=== PATIENT | male | born 1960 | race Caucasian/White ===

== ENCOUNTER 2019-10-30 07:06 | Emergency (ER) | payer OTHER ==
[~2019-10-30] VITALS: Ht 177.8 cm; Wt 95.7 kg
[2019-10-30 07:08] VITALS: BP 131/74
[2019-10-30] MEDS: HYOSCYAMINE 0.125 MG TAB.RAPDIS PO ONE (07:25)
[2019-10-30] MEDS: IV NORMAL SALINE 1,000ML 1,000 ML IV ONE (07:25)
[2019-10-30] MEDS: ONDANSETRON PF 4 MG/2 ML VIAL. IV ONE (07:25)
--- NOTE | 2019-10-30 07:31 | PHYS DOC ---
Past History Past Medical History: Cancer (non-Hodgkin's lymphoma, prostate, last chemotherapy or radiation 2 years ago), Other Past Surgical History: Cancer Surgery Smoking: Non-smoker Alcohol Use: None Drug Use: None Adult General Chief Complaint Chief Complaint: DIARRHEA HPI HPI Patient is a 59-year-old male presents with abdominal cramping and diarrhea that started this morning. No blood in the stool. There is some nausea without vomiting. No recent travel. Patient ate at an [employer] restaurant last night. But family with him is not sick. Subjective fevers. No home temperature has been taken. Nothing makes symptoms better or worse. Symptoms are moderate in intensity. He received the flu vaccine this season.[] Review of Systems Review of Systems Constitutional: Denies fever or chills [] Eyes: Denies change in visual acuity, redness, or eye pain [] HENT: Denies nasal congestion or sore throat [] Respiratory: Denies cough or shortness of breath [] Cardiovascular: No chest pain or palpitations[] GI: See history of present illness[] : Denies dysuria or hematuria [] Musculoskeletal: Denies back pain or joint pain [] Integument: Denies rash or skin lesions [] Neurologic: Denies headache, focal weakness or sensory changes [] Endocrine: Denies polyuria or polydipsia [] All other systems were reviewed and found to be within normal limits, except as documented in this note. Current Medications Current Medications Current Medications Medications (Trade) Dose Ordered Sig/Estevan Start Time Stop Time Status Last Admin Dose Admin Hyoscyamine (Anaspaz) 0.125 mg 1X ONCE 10/30/19 07:30 10/30/19 07:31 10/30/19 07:25 0.125 MG Ondansetron HCl (Zofran) 8 mg 1X ONCE 10/30/19 07:30 10/30/19 07:31 10/30/19 07:25 8 MG Sodium Chloride 1,000 ml @ 1,000 mls/hr 1X ONCE 10/30/19 07:30 10/30/19 08:29 10/30/19 07:25 1,000 MLS/HR Allergies Allergies Allergies Coded Allergies Type Severity Reaction Last Updated Verified No Known Drug Allergies 05/05/15 No Physical Exam Physical Exam Constitutional: Well developed, well nourished, no acute distress, non-toxic appearance. [] HENT: Normocephalic, atraumatic, bilateral external ears normal, oropharynx moist, no oral exudates, nose normal. [] Eyes: PERRLA, EOMI, conjunctiva normal, no discharge. [] Neck: Normal range of motion, no tenderness, supple, no stridor. [] Cardiovascular:Heart rate regular rhythm, no murmur [] Lungs & Thorax: Bilateral breath sounds clear to auscultation [] Abdomen: Bowel sounds normal, soft, no tenderness, no masses, no pulsatile masses. [] Skin: Warm, dry, no erythema, no rash. [] Back: No tenderness, no CVA tenderness. [] Extremities: No tenderness, no cyanosis, no clubbing, ROM intact, no edema. [] Neurologic: Alert and oriented X 3, normal motor function, normal sensory function, no focal deficits noted. [] Psychologic: Affect normal, judgement normal, mood normal. [] Current Patient Data Lab Results Laboratory Tests Test 10/30/19 07:13 10/30/19 07:23 White Blood Count 13.6 x10^3/uL Red Blood Count 5.36 x10^6/uL Hemoglobin 16.4 g/dL Hematocrit 46.5 % Mean Corpuscular Volume 87 fL Mean Corpuscular Hemoglobin 31 pg Mean Corpuscular Hemoglobin Concent 35 g/dL Red Cell Distribution Width 13.9 % Platelet Count 200 x10^3/uL Neutrophils (%) (Auto) 95 % Lymphocytes (%) (Auto) 2 % Monocytes (%) (Auto) 2 % Eosinophils (%) (Auto) 0 % Basophils (%) (Auto) 0 % Neutrophils # (Auto) 13.0 x10^3uL Lymphocytes # (Auto) 0.3 x10^3/uL Monocytes # (Auto) 0.3 x10^3/uL Eosinophils # (Auto) 0.0 x10^3/uL Basophils # (Auto) 0.0 x10^3/uL Sodium Level 140 mmol/L Potassium Level 4.2 mmol/L Chloride Level 104 mmol/L Carbon Dioxide Level 28 mmol/L Anion Gap 8 Blood Urea Nitrogen 19 mg/dL Creatinine 1.1 mg/dL Estimated GFR (Cockcroft-Gault) 68.1 BUN/Creatinine Ratio 17 Glucose Level 143 mg/dL Calcium Level 8.7 mg/dL Total Bilirubin 0.9 mg/dL Aspartate Amino Transf (AST/SGOT) 17 U/L Alanine Aminotransferase (ALT/SGPT) 35 U/L Alkaline Phosphatase 64 U/L Total Protein 7.9 g/dL Albumin 4.3 g/dL Albumin/Globulin Ratio 1.2 Lipase 59 U/L Influenza Type A (Rapid) Negative Influenza Type B (Rapid) Negative Current Medications Medications (Trade) Dose Ordered Sig/Estevan Route PRN Reason Start Time Stop Time Status Last Admin Dose Admin Sodium Chloride 1,000 ml @ 1,000 mls/hr 1X ONCE IV 10/30/19 07:30 10/30/19 08:29 10/30/19 07:25 Hyoscyamine (Anaspaz) 0.125 mg 1X ONCE PO 10/30/19 07:30 10/30/19 07:31 DC 10/30/19 07:25 Ondansetron HCl (Zofran) 8 mg 1X ONCE IV 10/30/19 07:30 10/30/19 07:31 DC 10/30/19 07:25 EKG EKG [] Radiology/Procedures Radiology/Procedures [] Course & Med Decision Making Course & Med Decision Making Pertinent Labs and Imaging studies reviewed. (See chart for details) Emergency department course: Patient arrived, was placed in bed, and tolerated exam well. IV access was established, he was given IV fluids, antibiotics, and antispasmodics. He reported feeling much better after the medications were administered. Findings and plan were discussed with patient and family who voiced understanding. All questions were answered. He was discharged in improved condition. Medical decision making: A ricardo does not have flu. Patient has no evidence of oral intake intolerance. No evidence of significant electrolyte abnormality. No evidence of pancreatitis, cholecystitis, appendicitis, uncontrolled diabetes, or any other significant issue that would require admission at this time.[] Dragon Disclaimer Dragon Disclaimer This electronic medical record was generated, in whole or in part, using a voice recognition dictation system. Departure Departure: Impression: Primary Impression: Diarrhea Additional Impression: Abdominal cramping Disposition: 01 HOME, SELF-CARE Condition: IMPROVED Referrals: CYRIL SUH DO (PCP) Follow-up in 2 days Patient Instructions: Diet for Diarrhea, Adult Additional Instructions: Drink plenty of fluids, frequent small sips. No fatty foods, no milk, and no pepper for the next 48 hours. For the next 48 hours eat a diet rich in c arbohydrates with foods such as bananas, rice, applesauce, and toast. Follow-up with your regular doctor in 2 days. Return to the emergency department if unable to tolerate liquids, blood in stool or emesis, or any other concerns. Scripts Ondansetron Hcl (ZOFRAN) 4 Mg Tablet 1 TAB PO Q6HRS for nausea or vomiting, #20 TAB Prov: BASSAM BOB DO 10/30/19 Hyoscyamine Sulfate (LEVSIN) 0.125 Mg Tablet 0.125 MG PO QID for abdominal pain/cramping, #30 TAB Prov: BASSAM BOB DO 10/30/19 Problem Qualifiers Primary Impression: Diarrhea Diarrhea type: unspecified type Qualified Codes: R19.7 - Diarrhea, unspecified BASSAM BOB DO Oct 30, 2019 07:31
[2019-10-30 07:41] LABS: BASO % 0 % (0-3); CALCIUM 8.7 mg/dL (8.5-10.1); CREATININE 1.1 mg/dL (0.7-1.3); EOS % 0 % (0-3); GFR 68.1; HEMATOCRIT 46.5 % (39.0-53.0); HEMOGLOBIN 16.4 g/dL (13.0-17.5); LYMPH # 0.3 x10^3/uL (1.0-4.8); LYMPH % 2 % (24-48); MEAN CORPUSCULAR HEMOGLOBIN 31 pg (25-35); MEAN CORPUSCULAR HGB CONC 35 g/dL (31-37); MEAN CORPUSCULAR VOLUME 87 fL (79-100); MONO # 0.3 x10^3/uL (0.0-1.1); MONO % 2 % (0-9); NEUT % 95 % (31-73); PLATELET COUNT 200 x10^3/uL (140-400); POTASSIUM 4.2 mmol/L (3.5-5.1); RED BLOOD COUNT 5.36 x10^6/uL (4.30-5.70); RED CELL DISTRIBUTION WIDTH 13.9 % (11.5-14.5); WHITE BLOOD COUNT 13.6 x10^3/uL (4.0-11.0)
[2019-10-30 07:55] LABS: ALBUMIN 4.3 g/dL (3.4-5.0); ALBUMIN/GLOBULIN RATIO 1.2 (1.0-1.7); TOTAL BILIRUBIN 0.9 mg/dL (0.2-1.0); TOTAL PROTEIN 7.9 g/dL (6.4-8.2)
[2019-10-30 07:55] LABS: INFLUENZA A PATIENT NEGATIVE (NEGATIVE); INFLUENZA B PATIENT NEGATIVE (NEGATIVE)
[2019-10-30] MEDS ORDERED: HYOS0.1264 PO (08:07)
[2019-10-30] MEDS ORDERED: ONDA4TAB7 PO (08:07)
== END 2019-10-30 08:10 | disposition home or self-care (01) ==
LOC: ER 07:06
DX: R19.7 Diarrhea, unspecified (principal); R10.9 Unspecified abdominal pain; R11.0 Nausea; Z85.72 Personal history of non-Hodgkin lymphomas
CPT/HCPCS: 36415; 80053; 83690; 85025; 87804; 96361; 96374; 99284; J2405; J7030